=== PATIENT | male | born 1990 | race Caucasian/White ===

== ENCOUNTER 2018-07-28 10:48 | Emergency (ER) | payer BC, OTHER ==
[~2018-07-28] VITALS: Ht 180.3 cm; Wt 97.0 kg
[~2018-07-28 10:48] MED LIST: HYDR-3240
[2018-07-28 10:55] VITALS: BP 132/63
--- NOTE | 2018-07-28 11:12 | NUR ---
PT AMBULATORY TO ROOM W/ C/O L SIDE GROIN ABSCESS STARTED A FEW WKS AGO AND PT STATES OVERNIGHT ABSCESS INCREASED IN SIZE AND IS INCREASINLY PAINFUL. PT RESTING ON [facility]. YOSEF TORRES AT BEDSIDE. I&D TO BE PERFORMED.
[2018-07-28] MEDS ORDERED: LIDOCAINE-MPF 1%, 5ML ONE (11:17)
[2018-07-28] MEDS ORDERED: LIDOCAINE 1%-EPI 1:100K, 20ML SQ ONE (11:30)
== END 2018-07-28 12:39 | disposition home or self-care (01) ==
LOC: ED 12:17
DX: L02.416 Cutaneous abscess of left lower limb (principal); F17.200 Nicotine dependence, unspecified, uncomplicated
CPT/HCPCS: 10060; 99283

== ENCOUNTER 2018-07-30 10:49 | Emergency (ER) | payer BC ==
[~2018-07-30] VITALS: Ht 180.3 cm; Wt 96.8 kg
[2018-07-30 10:50] VITALS: BP 135/77
[2018-07-30] MEDS ORDERED: HYDROcodone/APAP 5/325 TABLET ONE (11:13)
[2018-07-30] MEDS ORDERED: HYDROcodone/APAP 5/325 TABLET PO ONE (11:30)
== END 2018-07-30 11:34 | disposition home or self-care (01) ==
LOC: ED 11:32
DX: L02.416 Cutaneous abscess of left lower limb (principal)
CPT/HCPCS: 99283